=== PATIENT | male | born 2000 | race Hispanic/Latino ===

== ENCOUNTER 2020-09-11 13:08 | Emergency (ER) | payer OTHER ==
[~2020-09-11] VITALS: Ht 182.9 cm; Wt 117.9 kg
[2020-09-11] MEDS ORDERED: KETOROLAC 60 MG VIAL (30MG/ML) IM ONE (15:30)
[2020-09-11] MEDS ORDERED: CYCLOBENZAPRINE HCL 10 MG TABLET PO ONE (15:30)
[2020-09-11] MEDS ORDERED: HYDROCODONE/ACETAMINOPHEN 10/325 MG TAB PO ONE (15:30)
[2020-09-11] MEDS ORDERED: NAPR-1180 PO (15:47)
[2020-09-11] MEDS ORDERED: CYCL10 PO (15:47)
[2020-09-11 16:00] VITALS: BP 123/74
== END 2020-09-11 16:17 | disposition home or self-care (01) ==
LOC: EDH 13:08
DX: S39.012A Strain of muscle, fascia and tendon of lower back, initial encounter (principal); Z79.1 Long term (current) use of non-steroidal anti-inflammatories (NSAID); X58.XXXA Exposure to other specified factors, initial encounter; Y93.89 Activity, other specified; Y92.89 Other specified places as the place of occurrence of the external cause; Y99.8 Other external cause status
CPT/HCPCS: 72100; 96372; 99283; J1885

== ENCOUNTER 2022-07-04 22:21 | Emergency (ER) | payer OTHER ==
[~2022-07-04] VITALS: Ht 188 cm; Wt 127.0 kg
[~2022-07-04 22:21] MED LIST: CYCL10TA16 PO; NAPR-1180 PO
[2022-07-04] MEDS ORDERED: HYDROCODONE/ACETAMINOPHEN 5/325 MG TAB PO ONE (23:30)
[2022-07-04] MEDS ORDERED: KETOROLAC 60 MG VIAL (30MG/ML) IM ONE (23:30)
[2022-07-04] MEDS ORDERED: ORPHENADRINE CITRATE 30 MG/ML ML IM ONE (23:30)
[2022-07-05] MEDS ORDERED: LIDOCAINE 4% ADH..PATCH TP ONE (01:00)
[2022-07-05] MEDS ORDERED: DEXAMETHASONE SOD PHOSPHATE 4 MG/ML 1ML VIAL IM ONE (01:00)
[2022-07-05] MEDS ORDERED: LIDOCAINE 5% TOPICAL PATCH TP ONE ×2 (01:02→01:30)
[2022-07-05] MEDS ORDERED: MORPHINE 4 MG SYG IM ONE (02:30)
[2022-07-05 02:42] LABS: APPEARANCE,URINE CLEAR (CLEAR); BILIRUBIN,URINE NEGATIVE (NEGATIVE); COLOR,URINE LIGHT-ORANGE (YELLOW); GLUCOSE, URINE (UA) NEGATIVE (NEGATIVE); KETONES,URINE 10 mg/dL (NEGATIVE); LEUKOCYTE ESTERASE ,URINE NEGATIVE Leu/uL (NEGATIVE); NITRATE,URINE NEGATIVE (NEGATIVE); OCCULT BLOOD,URINE NEGATIVE (NEGATIVE); PH,URINE 5.5 (5.0-8.0); PROTEIN,URINE 10 mg/dL (NEGATIVE); UROBILINOGEN,URINE 0.2 mg/dL (0.2-1.0)
[2022-07-05] MEDS ORDERED: IBUP-2077 PO (03:25)
[2022-07-05] MEDS ORDERED: CYCL-309 PO (03:25)
[2022-07-05 03:43] VITALS: BP 148/80
== END 2022-07-05 03:47 | disposition home or self-care (01) ==
LOC: EDH 22:21
DX: S39.012A Strain of muscle, fascia and tendon of lower back, initial encounter (principal); X58.XXXA Exposure to other specified factors, initial encounter; Y93.89 Activity, other specified; Y92.89 Other specified places as the place of occurrence of the external cause; Y99.8 Other external cause status
CPT/HCPCS: 99285; 72131; 81003; 96372 ×4; J1885; J1100; J2270